=== PATIENT | female | born 1990 | race Caucasian/White ===

== ENCOUNTER 2017-09-21 01:14 | Emergency (ER) | payer BC ==
[~2017-09-21] VITALS: Ht 152.4 cm; Wt 90.8 kg
[~2017-09-21 01:14] MED LIST: IBUP-1050 PO; METR-163 PO; [UNRECOGNIZED DRUG - CODE] PO
[2017-09-21 01:19] VITALS: TEMP 36.3; Ht 152.4 cm; Wt 90.8 kg
[2017-09-21 02:23] VITALS: O2SAT 98
[2017-09-21 02:30] LABS: BASO % 0.3 %; BASO ABS # 0.04 K/uL (0-0.2); COMPLETE YES; EOS % 1.5 %; HEMATOCRIT 40.3 % (37-47); IG% 0.3 %; LYMPH % 24.7 %; LYMPH ABS # 2.89 K/uL (1.2-3.4); MEAN CELL VOLUME 95.7 fL (80-100); MEAN CORPUSCULAR HEMOGLOBIN 32.5 pg (25-34); MEAN PLATELET VOLUME 10.7 fL (7.4-10.4); MONO % 9.5 %; NEUT % 63.7 %; PLATELET COUNT 215 K/uL (130-400); RED BLOOD COUNT 4.21 M/uL (4.2-5.4); WHITE BLOOD COUNT 11.71 K/uL (4.8-10.8)
[2017-09-21 02:35] LABS: PREG INTERNAL NEGATIVE QC NEG CLEAR BACKGROUND; PREG INTERNAL POSITIVE QC POS CONTROL LINE
[2017-09-21 02:36] LABS: URINE APPEARANCE CLOUDY (CLEAR); URINE BILIRUBIN NEG (NEG); URINE COLOR YELLOW; URINE EPITHELIAL CELL AUTO >30 /lpf (0-5); URINE NITRITE NEG (NEG); URINE PH 6.5 (4.5-7.5); URINE SPECIFIC GRAVITY 1.013 (1.000-1.030); UROBILINOGEN NEG (NEG); ZZUR CULT IF INDIC CLEAN CATCH YES
[2017-09-21] MEDS ORDERED: HYDR-3126 PO (02:42)
[2017-09-21] MEDS ORDERED: SERT50TA PO (02:42)
[2017-09-21] MEDS ORDERED: AMT50 PO (02:42)
[2017-09-21] MEDS ORDERED: ATR25 PO (02:44)
[2017-09-21 02:48] LABS: MANUAL MICROSCOPIC REQUIRED? NO; REVIEW REQ? YES
[2017-09-21 02:50] LABS: ALT/SGPT 31 U/L (12-78); AST/SGOT 15 U/L (15-37); BLOOD UREA NITROGEN 8 mg/dl (7-18); BUN/CREATININE RATIO 15.1 (10-20); CARBON DIOXIDE 27 mmol/L (21-32); CHLORIDE 108 mmol/L (98-107); CREATININE 0.51 mg/dl (0.60-1.20); GLUCOSE 75 mg/dl (70-99); SODIUM 139 mmol/L (136-145)
[2017-09-21 03:00] LABS: ALKALINE PHOSPHATASE 66 U/L (45-117)
--- NOTE | 2017-09-21 04:54 | EMERGENCY ROOM VISIT NOTE ---
History First contact with patient: 02:07 Chief Complaint: DIZZY Stated Complaint: DIZZY,SHAKY,RAPID HEART RATE,SWEATY Nursing Triage Summary: Patient reports repeated dizzy spells over the last week. Patient reports dry heaving amd feeling to rapid heart rate. History of Present Illness The patient is a 27 year old female who presents to the Emergency Room with complaints of lightheadedness and near-syncope for the past month that occurs a few times per day. Patient states she often skips meals. Patient states tonight when she was at work she like she was dizzy and nearly passed out. She is not completely pass out. Patient denies chest pain prior to the passing out episode, dyspnea, abdominal pain, vomiting, diarrhea, fever, chills, recent illness. No vomiting or diarrhea. Patient felt like her heart was pounding when she nearly passed out tonight. Review of Systems See HPI for pertinent positives & negatives. A total of 10 systems reviewed and were otherwise negative. Past Medical/Surgical History Asthma Social History Smoking Status: Current Every Day Smoker Drug Use: none Marital Status: in relationship Housing Status: lives with family Occupation Status: employed Current/Historical Medications Scheduled Amitriptyline Hcl (Elavil), 50 MG PO HS Hydroxyzine HCl (Hydroxyzine HCl), 25 MG PO BID Sapropterin Dihydrochloride (Kuvan), 1,600 MG PO DAILY Sertraline (Zoloft), 50 MG PO DAILY Allergies Coded Allergies: Latex (Verified Allergy, Unknown, swelling, 09/21/17) Sulfa Antibiotics (Verified Allergy, Unknown, hives, 09/21/17) Sulfamethoxazole w/Trimethoprim (Verified Allergy, Unknown, hives, 09/21/17 ) Physical Exam Vital Signs Date Time Temp Pulse Resp B/P (MAP) Pulse Ox O2 Delivery O2 Flow Rate FiO2 09/21/17 03:11 73 18 114/71 95 Room Air 09/21/17 02:23 98 Room Air 09/21/17 02:23 Room Air 09/21/17 01:45 78 113/74 93 124/74 95 123/76 09/21/17 01:38 90 09/21/17 01:19 36.3 90 18 132/67 99 Room Air Physical Exam VITALS: Vitals are noted on the nurse's note and reviewed by myself. Vital signs stable. GENERAL: Pleasant female, in no acute distress, nondiaphoretic, well-developed well-nourished. SKIN: The skin was without rashes, erythema, edema, or bruising. There is no tenting of the skin. Capillary reflex less than 2 seconds. HEAD: Normocephalic atraumatic. EARS: External auditory canals clear, tympanic membranes pearly clark without erythema or effusion bilaterally. EYES: Pupils equal round and reactive to light and accommodation. Conjunctivae without injection, sclerae without icterus. Extraocular movements intact. NOSE: Patent, turbinates without inflammation or discharge. MOUTH: Mucous membranes moist. Pharynx without erythema or exudate. Uvula midline. Airway patent. Tongue does not deviate. NECK: Supple without nuchal rigidity. No lymphadenopathy. No thyromegaly. Cervical spine is nontender. No JVD. HEART: Regular rate and rhythm without murmurs gallops or rubs. LUNGS: Clear to auscultation bilaterally without wheezes, rales or rhonchi. No dullness to percussion. No retractions or accessory muscle use. ABDOMEN: Positive bowel sounds x 4. Normal tympanic percussion. Soft, nontender, without masses or organomegaly. Sandy sign negative. No guarding or rebound tenderness. MUSCULOSKELETAL: No muscle atrophy, erythema, or edema noted. 5 out of 5 strength throughout. NEURO: Patient was alert and oriented to person place and time. Normal sensation to light and sharp touch. No focal neurological deficits. Cranial nerves II-12 grossly intact. No pronator drift. Cerebellar exam intact. Medical Decision & Procedures Laboratory Results 09/21/17 01:40 Red Blood Count 4.21, Mean Corpuscular Volume 95.7, Mean Corpuscular Hemoglobin 32.5, Mean Corpuscular Hemoglobin Concent 34.0, Mean Platelet Volume 10.7, Neutrophils (%) (Auto) 63.7, Lymphocytes (%) (Auto) 24.7, Monocytes (%) (Auto) 9.5, Eosinophils (%) (Auto) 1.5, Basophils (%) (Auto) 0.3, Neutrophils # (Auto) 7.46, Lymphocytes # (Auto) 2.89, Monocytes # (Auto) 1.11, Eosinophils # (Auto) 0.17, Basophils # (Auto) 0.04 09/21/17 01:40 Test 09/21/17 00:00 09/21/17 01:40 09/21/17 02:31 Urine Color YELLOW Urine Appearance CLOUDY (CLEAR) Urine pH 6.5 (4.5-7.5) Urine Specific [place] 1.013 (1.000-1.030) Urine Protein NEG (NEG) Urine Glucose (UA) TRACE (NEG) Urine Ketones NEG (NEG) Urine Occult Blood NEG (NEG) Urine Nitrite NEG (NEG) Urine Bilirubin NEG (NEG) Urine Urobilinogen NEG (NEG) Urine Leukocyte Esterase MODERATE (NEG) Urine WBC (Auto) 10-30 /hpf (0-5) Urine RBC (Auto) 0-4 /hpf (0-4) Urine Hyaline Casts (Auto) 1-5 /lpf (0-5) Urine Epithelial Cells (Auto) >30 /lpf (0-5) Urine Bacteria (Auto) 1+ (NEG) White Blood Count 11.71 K/uL (4.8-10.8) Red Blood Count 4.21 M/uL (4.2-5.4) Hemoglobin 13.7 g/dL (12.0-16.0) Hematocrit 40.3 % (37-47) Mean Corpuscular Volume 95.7 fL (80-100) Mean Corpuscular Hemoglobin 32.5 pg (25-34) Mean Corpuscular Hemoglobin Concent 34.0 g/dl (32-36) Platelet Count 215 K/uL (130-400) Mean Platelet Volume 10.7 fL (7.4-10.4) Neutrophils (%) (Auto) 63.7 % Lymphocytes (%) (Auto) 24.7 % Monocytes (%) (Auto) 9.5 % Eosinophils (%) (Auto) 1.5 % Basophils (%) (Auto) 0.3 % Neutrophils # (Auto) 7.46 K/uL (1.4-6.5) Lymphocytes # (Auto) 2.89 K/uL (1.2-3.4) Monocytes # (Auto) 1.11 K/uL (0.11-0.59) Eosinophils # (Auto) 0.17 K/uL (0-0.5) Basophils # (Auto) 0.04 K/uL (0-0.2) RDW Standard Deviation 43.7 fL (36.4-46.3) RDW Coefficient of Variation 12.6 % (11.5-14.5) Immature Granulocyte % (Auto) 0.3 % Immature Granulocyte # (Auto) 0.04 K/uL (0.00-0.02) Anion Gap 4.0 mmol/L (3-11) Est Creatinine Clear Calc Drug Dose 169.4 ml/min Estimated GFR () > 150.0 Estimated GFR (Non- 133.6 BUN/Creatinine Ratio 15.1 (10-20) Calcium Level 9.0 mg/dl (8.5-10.1) Total Bilirubin 0.2 mg/dl (0.2-1) Direct Bilirubin < 0.1 mg/dl (0-0.2) Aspartate Amino Transf (AST/SGOT) 15 U/L (15-37) Alanine Aminotransferase (ALT/SGPT) 31 U/L (12-78) Alkaline Phosphatase 66 U/L (45-117) Total Protein 6.7 gm/dl (6.4-8.2) Albumin 4.1 gm/dl (3.4-5.0) Thyroid Stimulating Hormone (TSH) 1.880 uIu/ml (0.300-4.500) Human Chorionic Gonadotropin, Qual NEG (NEG) Bedside Troponin I < 0.030 ng/ml (0-0.045) ED Course Prior records/ancillary studies reviewed. Triage Nursing notes reviewed. The patient's history was concerning for dizziness and near syncope. Differential diagnosis: Etiologies such as benign positional vertigo, dehydration, hypovolemia, anemia, tumor, infection, hypoglycemia, electrolyte abnormalities, cardiac sources, intracerebral event, toxicologic, neurologic, as well as others were entertained. Physical examination: As above. No pathologic nystagmus. ER treatment provided: By mouth fluids On reassessment the patient felt well. Diagnostics interpretation by me: ECG: Normal sinus rhythm without ischemic change or evidence of dysrhythmia. Poor baseline, no acute ST-T wave changes, normal axis, rate of 83. Impression normal sinus rhythm with poor baseline interpreted by myself The labs revealed a normal CBC and chemistry panel. Negative hCG Head CT negative for intracranial bleed per radiology Exam and history seem consistent with his nose and near syncope. Patient goes quite some time without eating. She does not drink much water. This could be contributing to her dizziness and near syncopal episodes. Patient was neurovascularly and neurologically intact. Patient had unremarkable workup as above. She is advised follow-up family care in a few days for ongoing symptoms or here in the ER sooner for chest pain, difficulty breathing, passing out, worsening signs or symptoms or as needed. By the evaluation outlined above emergent etiologies such as infection, hypoglycemia, electrolyte abnormalities, cardiac sources, intracerebral event, toxicologic, neurologic,as well as others were deemed relatively unlikely. The pt informed about the findings as listed above. All questions were answered and pleased with the treatment. Return instructions were outlined and the patient was discharged in stable condition. Case reviewed by attending Referral: The patient was referred back to their primary care physician for follow-up in 2 to 3 days for a recheck of the current condition. Medical Decision As above Impression Primary Impression: Near syncope Additional Impression: Dizziness Departure Information Dispostion Home / Self-Care Condition GOOD Forms HOME CARE DOCUMENTATION FORM, Work Instructions, Return To Work: 1 day IMPORTANT VISIT INFORMATION Patient Instructions [facility], ED Dizziness [facility], ED Near Syncope [facility] Additional Instructions Eat regular meals. Rest and drink plenty of fluids as tolerated. Continue current medications. Return to the ER immediately for syncope, abdominal pain, vomiting, fevers, chest pains, difficulty breathing, worsening of your condition, or as needed. Follow up with your primary physician in 2-3 days for a recheck of your current condition. Work Instructions Return To Work: 1 day Problem Qualifiers
[2017-09-21 04:57] VITALS: BP 121/76; PULSE 78; O2SAT 99
--- NOTE | 2017-09-21 06:29 | DIAGNOSTIC IMAGING REPORT ---
CT HEAD WITHOUT CONTRAST (CT) CLINICAL HISTORY: dizzy, near syncope COMPARISON STUDY: No previous studies for comparison. TECHNIQUE: Axial CT of the brain is performed from the vertex to the skull base. IV contrast was not administered for this examination. A dose lowering technique was utilized adhering to the principles of ALARA. CT DOSE: 537.48 mGy.cm FINDINGS: No intra or extra-axial mass lesions are visualized. There is no CT evidence of acute cortical infarction. There is no evidence of midline shift. There is no acute hemorrhage. No calvarial fractures are visualized. There is no evidence of pathologic ventricular dilatation. There is no evidence of acute sinusitis IMPRESSION: Normal noncontrast head CT. Electronically signed by: Ammon Moyer M.D. 09/21/2017 6:28 AM Dictated Date/Time: 09/21/2017 6:27 AM
== END 2017-09-21 04:57 | disposition home or self-care (01) ==
LOC: C.EDB 01:15 → C.EDA 04:57
DX: R55 Syncope and collapse (principal); R42 Dizziness and giddiness; J45.909 Unspecified asthma, uncomplicated; F17.200 Nicotine dependence, unspecified, uncomplicated

== ENCOUNTER 2018-02-09 22:59 | Emergency (ER) | payer OTHER, BC ==
[~2018-02-09] VITALS: Ht 152.4 cm; Wt 91.4 kg
[~2018-02-09 22:59] MED LIST changes: +AMT50 PO; +ATR25 PO; -IBUP-1050 PO; -METR-163 PO; +SERT50TA PO
[2018-02-09 23:01] VITALS: TEMP 36.6; Ht 152.4 cm; Wt 91.4 kg
--- NOTE | 2018-02-09 23:30 | DIAGNOSTIC IMAGING REPORT ---
RIGHT HAND 3 VIEWS CLINICAL HISTORY: Right hand injury. FINDINGS: 3 views of the right hand are obtained. No prior studies are available for comparison at the time of dictation. The skeletal structures are well mineralized. No fracture is seen. The joint spaces of the hand are well-maintained. The overlying soft tissues are normal in appearance. IMPRESSION: No acute bony abnormality is identified. Electronically signed by: Avila Antonio M.D. 02/09/2018 11:29 PM Dictated Date/Time: 02/09/2018 11:27 PM
[2018-02-09 23:35] VITALS: BP 126/64; PULSE 80; O2SAT 95
--- NOTE | 2018-02-10 05:22 | EMERGENCY ROOM VISIT NOTE ---
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 This is a work-related injury. The patient rates the pain as throbbing and 4/10. The patient denies any numbness or tingling. The patient does not have injuries to the wrist. The patient does not think she is fractured this hand before. REVIEW OF SYSTEMS: A 6 system review of systems was completed with positives and pertinent negatives in the HPI. ALLERGIES: Sulfa, reviewed MEDICATIONS: Reviewed PMH: Reviewed SOCIAL HISTORY: Tobacco use PHYSICAL EXAM: Vital Signs: Reviewed Nurse's notes, vital signs stable. GENERAL : Pleasant femur, in no acute distress, but appears to be in pain, well- developed, well-nourished. MUSCULOSKELETAL: There is no deformity of the right hand. There is tenderness diffusely. There is no thenar or hypothenar eminence atrophy. Normal thumb opposition to all fingers. Pipe Fitter Ammonia strength 5/5. There is no laceration. Capillary refill less than 2 seconds. No tenderness of the fingers or wrist. Full range of motion of the wrist. No snuff box tenderness. Radial pulse 2+. NEURO: Alert and oriented to person, place, and time. Normal sensation to light and sharp touch. EMERGENCY DEPARTMENT COURSE: I examined the patient. An x-ray of the right hand was reviewed by myself and radiology and shows no fracture. Patient asked that I filled out her work injury paperwork and this was done getting back to her. She is advised to have light activity with the hand for the week at work and if symptoms persist to follow-up with workers comp orthopedics or here in the ER sooner for severe pain, numbness, tingling, worsening signs or symptoms or as needed. Patient was neurovascularly and neurologically intact. No fracture. No deficits. The patient was discharged home in good condition. DIAGNOSIS: #1 right hand injury #2 work-related injury DISCHARGE INSTRUCTIONS: As below Current/Historical Medications Scheduled Amitriptyline Hcl (Elavil), 50 MG PO HS Hydroxyzine HCl (Hydroxyzine HCl), 25 MG PO BID Sapropterin Dihydrochloride (Kuvan), 1,600 MG PO DAILY Sertraline (Zoloft), 50 MG PO DAILY Allergies Coded Allergies: Latex (Verified Allergy, Unknown, swelling, 09/21/17) Sulfa Antibiotics (Verified Allergy, Unknown, hives, 09/21/17) Sulfamethoxazole w/Trimethoprim (Verified Allergy, Unknown, hives, 09/21/17 ) Vital Signs Date Time Temp Pulse Resp B/P (MAP) Pulse Ox O2 Delivery O2 Flow Rate FiO2 02/09/18 23:35 80 16 126/64 95 Room Air 02/09/18 23:01 36.6 94 20 116/85 96 Room Air Departure Information Impression Primary Impression: Injury of right hand Dispostion Home / Self-Care Condition GOOD Referrals Alexx Clark D.O. Forms HOME CARE DOCUMENTATION FORM, Work Instructions, Additional Instructions: no use of right hand x 1 week IMPORTANT VISIT INFORMATION Patient Instructions [facility] Additional Instructions Ibuprofen(Motrin, Advil) may be used for fever or pain. Use 600mg every six hours as needed. Take with food. Avoid using more than 2400mg in a 24 hour period. Do not use 2400mg per day for more than three consecutive days without physician direction. Prolonged inappropriate use can lead to stomach upset or ulcers. This medication can be taken if you need to drive, work, or perform activities which may be dangerous when taking narcotic pain medication. (AND/OR) Acetaminophen(Tylenol) may be used for fever or pain. Use 1000mg every six hours as needed. Avoid using more than 3000mg in a 24 hour period. This medication can be taken if you need to drive, work, or perform activities which may be dangerous when taking narcotic pain medication. Ice compresses for 20 minutes at a time four times daily for 2-3 days. Rest and elevate your injury. Continue current medications. Return to the ER immediately for any numbness, tingling, severe pain, extreme swelling in the extremity or as needed. Call Orthopedics/Worker's Comp. in 3-5 days if symptoms persist to arrange follow up for your injury. Make sure orthopedics is approved through your work. Work Instructions Additional Work Instructions: no use of right hand x 1 week
== END 2018-02-09 23:40 | disposition home or self-care (01) ==
LOC: C.EDB 23:01
DX: S69.91XA Unspecified injury of right wrist, hand and finger(s), initial encounter (principal); W23.0XXA Caught, crushed, jammed, or pinched between moving objects, initial encounter; Y99.0 Civilian activity done for income or pay; Z72.0 Tobacco use; Z91.040 Latex allergy status; Z88.2 Allergy status to sulfonamides